=== PATIENT | female | born 1970 | race Asian ===

== ENCOUNTER 2024-05-24 16:45 | Emergency (ER) | payer OTHER ==
[~2024-05-24] VITALS: Ht 152.4 cm; Wt 63.2 kg
[2024-05-24 16:57] VITALS: TEMP 98.2
[2024-05-24] MEDS ORDERED: ATOR20TA PO (16:58)
[2024-05-24] MEDS: AMOX TR/POT CLAV 875 MG/125 MG TABLET PO ONE (20:20)
[2024-05-24] MEDS: PERTUSS(ACELL),DIPH,TET/PF 0.5 ML SYRINGE [ADULT] IM. ONE (20:21)
[2024-05-24 20:30] VITALS: BP 154/78; PULSE 65; RESP 17; O2SAT 99
[2024-05-24] MEDS ORDERED: AMOX-457 PO (20:30)
== END 2024-05-24 20:49 | disposition home or self-care (01) ==
LOC: EMS 16:45
DX: S61.452A Open bite of left hand, initial encounter (principal); E78.00 Pure hypercholesterolemia, unspecified; Z79.899 Other long term (current) drug therapy; W55.01XA Bitten by cat, initial encounter; Y93.89 Activity, other specified; Y92.89 Other specified places as the place of occurrence of the external cause; Y99.8 Other external cause status
CPT/HCPCS: 90471; 90715; 99283